=== PATIENT | female | born 1950 | race Caucasian/White ===

== ENCOUNTER 2017-03-10 16:27 | Emergency (ER) | payer OTHER ==
[2017-03-10 22:13] LABS: ADD MAN DIFF? NO
[2017-03-10 22:17] LABS: WHITE BLOOD COUNT 4.6 10^3/ul (4.8-10.8)
[2017-03-10 22:17] LABS: ABNORMAL IP MESSAGE 1; BASOPHILS % 0.6 % (0.0-2.0); EOSINOPHILS % 0.2 % (0.0-7.0); HEMATOCRIT 32.8 % (37.0-47.0); HEMOGLOBIN 11.3 g/dl (12.0-16.0); LYMPHOCYTES # 0.5 10^3/ul (0.8-2.9); LYMPHOCYTES % 11.6 % (15.0-51.0); MEAN CORPUSCULAR HEMOGLOBIN 29.4 pg (29.0-33.0); MEAN CORPUSCULAR HGB CONC 34.5 g/dl (32.0-37.0); MEAN CORPUSCULAR VOLUME 85.4 fl (82.0-101.0); MONOCYTE # 0.7 10^3/ul (0.3-0.9); MONOCYTES % 15.3 % (0.0-11.0); NEUTROPHIL # 3.3 10^3/ul (1.6-7.5); NEUTROPHILS % 71.9 % (39.0-77.0); PLATELET COUNT 224 10^3/UL (140-415); RED BLOOD COUNT 3.84 10^6/ul (4.20-5.40); RED CELL DISTRIBUTION WIDTH 13.6 % (11.5-14.5)
[2017-03-10] MEDS: ACETAMINOPHEN 325 MG TAB PO (22:18)
[2017-03-10] MEDS: METOCLOPRAMIDE 10 MG INJ IV (22:18)
[2017-03-10] MEDS: CEFEPIME 2GM/50 ML (PMX) 50 ML IVPB (22:18)
[2017-03-10] MEDS: SODIUM CHLORIDE 0.9% 1L BAG IV* (22:19)
[2017-03-10] MEDS: KETOROLAC 15 MG INJ IV (22:19)
[2017-03-10 22:24] LABS: POSITIVE DIFF @See below
[2017-03-10 22:36] LABS: ALANINE AMINOTRANSFERASE 43 IU/L (13-69); ALBUMIN 4.6 g/dl (3.3-4.9); ALBUMIN/GLOBULIN RATIO 1.24; ALKALINE PHOSPHATASE 74 IU/L (42-121); ANION GAP 21 (8-16); ASPARTATE AMINO TRANSFERASE 41 IU/L (15-46); BLOOD UREA NITROGEN 12 mg/dl (7-20); CALCIUM 8.9 mg/dl (8.4-10.2); CARBON DIOXIDE 26 mmol/L (21-31); CHLORIDE 88 mmol/L (97-110); CREATININE 0.61 mg/dl (0.44-1.00); GLUCOSE 100 mg/dl (70-220); POTASSIUM 3.7 mmol/L (3.5-5.1); SODIUM 131 mmol/L (135-144); TOTAL PROTEIN 8.3 g/dl (6.1-8.1)
[2017-03-10 22:41] LABS: INR 0.93; PROTIME 12.5 Sec (11.9-14.9)
[2017-03-10 22:42] LABS: PARTIAL THROMBOPLASTIN TIME 30.6 Sec (25.0-35.0)
[2017-03-10 22:45] LABS: LACTIC ACID 1.4 mmol/L (0.5-2.0)
[2017-03-10 22:47] LABS: TROPONIN-I < 0.012 ng/ml (0.00-0.12)
[2017-03-11 00:12] LABS: LACTIC ACID 0.6 mmol/L (0.5-2.0)
[2017-03-11 01:25] LABS: ADD UMIC YES; UR ASCORBIC ACID NEGATIVE (NEGATIVE); UR BILIRUBIN (Dip) NEGATIVE (NEGATIVE); UR BLOOD (Dip) 1+ mg/dL (NEGATIVE); UR CLARITY CLEAR (CLEAR); UR COLOR COLORLESS (YELLOW); UR GLUCOSE (Dip) NEGATIVE (NEGATIVE); UR KETONES (Dip) TRACE mg/dL (NEGATIVE); UR LEUKOCYTE ESTERASE (Dip) NEGATIVE Leu/ul (NEGATIVE); UR NITRITE (Dip) NEGATIVE (NEGATIVE); UR RBC 5 /HPF (0-5); UR SPECIFIC GRAVITY (Dip) 1.006 (1.003-1.030); UR TOTAL PROTEIN (Dip) NEGATIVE (NEGATIVE); UR UROBILINOGEN (Dip) NEGATIVE (NEGATIVE); UR WBC 0 /HPF (0-5)
== END 2017-03-11 02:27 | disposition home or self-care (01) ==
LOC: E/R 03-11 02:27
DX: J11.1 Influenza due to unidentified influenza virus with other respiratory manifestations (principal); I10 Essential (primary) hypertension; R07.9 Chest pain, unspecified; Z79.82 Long term (current) use of aspirin
CPT/HCPCS: 36415; 71045; 80053; 81001; 83605; 84484; 85025; 85610; 85730; 87040; 87086; 87400; 93005; 96374; 96375; 99285-25

== ENCOUNTER 2018-05-30 16:28 | Inpatient (IN) | payer OTHER ==
[2018-05-30 17:59] LABS: ADD MAN DIFF? NO
[2018-05-30 18:05] LABS: WHITE BLOOD COUNT 5.3 10^3/ul (4.8-10.8)
[2018-05-30 18:05] LABS: BASOPHILS % 0.4 % (0.0-2.0); EOSINOPHILS % 0.4 % (0.0-7.0); HEMATOCRIT 36.4 % (37.0-47.0); HEMOGLOBIN 12.3 g/dl (12.0-16.0); LYMPHOCYTES # 1.3 10^3/ul (0.8-2.9); MEAN CORPUSCULAR HGB CONC 33.8 g/dl (32.0-37.0); MEAN CORPUSCULAR VOLUME 85.8 fl (82.0-101.0); MEAN PLATELET VOLUME 10.9 fl (7.4-10.4); MONOCYTE # 0.4 10^3/ul (0.3-0.9); MONOCYTES % 8.1 % (0.0-11.0); NEUTROPHIL # 3.6 10^3/ul (1.6-7.5); NEUTROPHILS % 66.9 % (39.0-77.0); PLATELET COUNT 207 10^3/UL (140-415); RED BLOOD COUNT 4.24 10^6/ul (4.20-5.40); RED CELL DISTRIBUTION WIDTH 13.7 % (11.5-14.5)
[2018-05-30] MEDS: ASPIRIN 81 MG TAB PO (18:06)
[2018-05-30] MEDS: NITROGLYCERIN 2% 1 GM OINT PKT TD (18:07)
[2018-05-30] MEDS: NITROGLYCERIN (SL) 0.4 MG TAB SL (18:07)
[2018-05-30 18:22] LABS: ANION GAP 16 (5-13); BLOOD UREA NITROGEN 14 mg/dl (7-20); CALCIUM 9.4 mg/dl (8.4-10.2); CARBON DIOXIDE 25 mmol/L (21-31); CHLORIDE 93 mmol/L (97-110); CREATININE 0.51 mg/dl (0.44-1.00); Estimated GFR > 60 mL/min (>60); GLUCOSE 108 mg/dl (70-220); POTASSIUM 4.2 mmol/L (3.5-5.1); SODIUM 134 mmol/L (135-144)
[2018-05-30 18:34] LABS: TROPONIN-I < 0.012 ng/ml (0.000-0.120)
[2018-05-30] MEDS ORDERED: ONDANSETRON 4 MG INJ IV (19:30)
[2018-05-30] MEDS ORDERED: ACETAMINOPHEN 325 MG TAB PO (19:30)
[2018-05-30] MEDS ORDERED: ZOLPIDEM 5 MG TAB PO (23:30)
[2018-05-30] MEDS ORDERED: NITROGLYCERIN (SL) 0.4 MG TAB SL (23:30)
[2018-05-30 23:56] LABS: CREATINE KINASE 82 IU/L (23-200)
[2018-05-31 00:09] LABS: CK INDEX 0.4; CK-MB 0.32 ng/ml (0.0-2.4); TROPONIN-I < 0.012 ng/ml (0.000-0.120)
[2018-05-31] MEDS: HYDROCODONE/APAP (5/325) TAB PO ×2 (05:11→10:30)
[2018-05-31] MEDS: PANTOPRAZOLE (EC) 40 MG TAB PO (05:11)
[2018-05-31] MEDS: ONDANSETRON 4 MG TAB PO (05:11)
[2018-05-31 06:49] LABS: CREATINE KINASE 74 IU/L (23-200)
[2018-05-31 06:57] LABS: HDL CHOLESTEROL 55 mg/dl (35-98); LDL CHOLESTEROL,CALCULATED 45 mg/dl; TRIGLYCERIDES 50 mg/dl (0-149)
[2018-05-31 06:57] LABS: CHOLESTEROL 110 mg/dl (100-200)
[2018-05-31 07:18] LABS: CK INDEX 0.3; CK-MB 0.23 ng/ml (0.0-2.4); TROPONIN-I < 0.012 ng/ml (0.000-0.120)
[2018-05-31 07:20] LABS: TROPONIN-I < 0.012 ng/ml (0.000-0.120)
[2018-05-31] MEDS: ASPIRIN 325 MG TAB PO (08:07)
[2018-05-31] MEDS: METOPROLOL 25 MG TAB PO ×2 (08:07→20:35)
[2018-05-31] MEDS: ENOXAPARIN 40 MG/0.4 ML SYG SC (08:08)
[2018-05-31 17:24] LABS: ALANINE AMINOTRANSFERASE 16 IU/L (13-69); ALBUMIN 4.1 g/dl (3.3-4.9); ALBUMIN/GLOBULIN RATIO 1.28; ALKALINE PHOSPHATASE 60 IU/L (42-121); AMYLASE 122 U/L (11-123); ANION GAP 11 (5-13); ASPARTATE AMINO TRANSFERASE 22 IU/L (15-46); BILIRUBIN,INDIRECT 0.3 mg/dl (0-1.1); BILIRUBIN,TOTAL 0.3 mg/dl (0.2-1.3); BLOOD UREA NITROGEN 14 mg/dl (7-20); CALCIUM 8.9 mg/dl (8.4-10.2); CARBON DIOXIDE 27 mmol/L (21-31); CHLORIDE 95 mmol/L (97-110); CREATININE 0.85 mg/dl (0.44-1.00); Estimated GFR > 60 mL/min (>60); GLUCOSE 108 mg/dl (70-220); LIPASE 203 U/L (23-300); POTASSIUM 4.1 mmol/L (3.5-5.1); SODIUM 133 mmol/L (135-144); TOTAL PROTEIN 7.3 g/dl (6.1-8.1)
[2018-05-31] MEDS: ATORVASTATIN 20 MG TAB PO (20:34)
[2018-06-01] MEDS: PANTOPRAZOLE (EC) 40 MG TAB PO (06:06)
[2018-06-01 06:11] LABS: ADD MAN DIFF? NO
[2018-06-01 06:20] LABS: BASOPHILS % 0.5 % (0.0-2.0); EOSINOPHILS # 0.1 10^3/ul (0.0-0.5); EOSINOPHILS % 2.3 % (0.0-7.0); HEMATOCRIT 34.5 % (37.0-47.0); HEMOGLOBIN 11.6 g/dl (12.0-16.0); LYMPHOCYTES # 1.7 10^3/ul (0.8-2.9); LYMPHOCYTES % 42.2 % (15.0-51.0); MEAN CORPUSCULAR HEMOGLOBIN 29.6 pg (29.0-33.0); MEAN CORPUSCULAR HGB CONC 33.6 g/dl (32.0-37.0); MEAN PLATELET VOLUME 10.7 fl (7.4-10.4); MONOCYTE # 0.4 10^3/ul (0.3-0.9); MONOCYTES % 10.6 % (0.0-11.0); NEUTROPHIL # 1.8 10^3/ul (1.6-7.5); NEUTROPHILS % 44.4 % (39.0-77.0); PLATELET COUNT 200 10^3/UL (140-415); RED BLOOD COUNT 3.92 10^6/ul (4.20-5.40); RED CELL DISTRIBUTION WIDTH 13.9 % (11.5-14.5)
[2018-06-01 06:49] LABS: TROPONIN-I < 0.012 ng/ml (0.000-0.120)
[2018-06-01 06:50] LABS: ANION GAP 10 (5-13); BLOOD UREA NITROGEN 19 mg/dl (7-20); CARBON DIOXIDE 27 mmol/L (21-31); CHLORIDE 98 mmol/L (97-110); CHOL/HDL RATIO 1.8 RATIO; CHOLESTEROL 103 mg/dl (100-200); Estimated GFR > 60 mL/min (>60); GLUCOSE 95 mg/dl (70-220); HDL CHOLESTEROL 55 mg/dl (35-98); LDL CHOLESTEROL,CALCULATED 37 mg/dl; POTASSIUM 4.1 mmol/L (3.5-5.1); SODIUM 135 mmol/L (135-144); TRIGLYCERIDES 53 mg/dl (0-149)
[2018-06-01] MEDS: METOPROLOL 25 MG TAB PO ×2 (09:00→22:14)
[2018-06-01] MEDS: ASPIRIN 325 MG TAB PO (09:00)
[2018-06-01] MEDS: ENOXAPARIN 40 MG/0.4 ML SYG SC (10:48)
[2018-06-01] MEDS: REGADENOSON 0.4 MG/5 ML SYG (11:45)
[2018-06-01] MEDS: ATORVASTATIN 20 MG TAB PO (21:50)
[2018-06-01] MEDS: OXYMETAZOLINE 0.05% 15 ML NAS SPRAY NASAL (22:14)
[2018-06-01] MEDS: LORATADINE 10 MG TAB PO (22:14)
[2018-06-02] MEDS: PANTOPRAZOLE (EC) 40 MG TAB PO (06:04)
[2018-06-02 06:54] LABS: ADD MAN DIFF? NO
[2018-06-02 06:57] LABS: WHITE BLOOD COUNT 3.9 10^3/ul (4.8-10.8)
[2018-06-02 06:57] LABS: BASOPHILS % 0.5 % (0.0-2.0); EOSINOPHILS # 0.1 10^3/ul (0.0-0.5); EOSINOPHILS % 1.8 % (0.0-7.0); HEMATOCRIT 34.5 % (37.0-47.0); HEMOGLOBIN 11.6 g/dl (12.0-16.0); LYMPHOCYTES # 1.6 10^3/ul (0.8-2.9); LYMPHOCYTES % 41.9 % (15.0-51.0); MEAN CORPUSCULAR HEMOGLOBIN 29.4 pg (29.0-33.0); MEAN CORPUSCULAR HGB CONC 33.6 g/dl (32.0-37.0); MEAN CORPUSCULAR VOLUME 87.3 fl (82.0-101.0); MEAN PLATELET VOLUME 10.9 fl (7.4-10.4); MONOCYTE # 0.5 10^3/ul (0.3-0.9); MONOCYTES % 12.3 % (0.0-11.0); NEUTROPHIL # 1.7 10^3/ul (1.6-7.5); NEUTROPHILS % 43.2 % (39.0-77.0); PLATELET COUNT 198 10^3/UL (140-415); RED BLOOD COUNT 3.95 10^6/ul (4.20-5.40)
[2018-06-02 07:24] LABS: ANION GAP 9 (5-13); BLOOD UREA NITROGEN 17 mg/dl (7-20); CARBON DIOXIDE 28 mmol/L (21-31); CHLORIDE 99 mmol/L (97-110); CREATININE 0.63 mg/dl (0.44-1.00); Estimated GFR > 60 mL/min (>60); GLUCOSE 91 mg/dl (70-220); POTASSIUM 3.8 mmol/L (3.5-5.1); SODIUM 136 mmol/L (135-144)
[2018-06-02] MEDS: METOPROLOL 25 MG TAB PO ×2 (09:00→21:02)
[2018-06-02] MEDS: ASPIRIN 325 MG TAB PO (09:08)
[2018-06-02] MEDS: LORATADINE 10 MG TAB PO (09:09)
[2018-06-02] MEDS: OXYMETAZOLINE 0.05% 15 ML NAS SPRAY NASAL ×2 (09:10→21:03)
[2018-06-02] MEDS: ENOXAPARIN 40 MG/0.4 ML SYG SC (09:14)
[2018-06-02] MEDS ORDERED: LORAZEPAM 0.5 MG TAB PO (12:30)
[2018-06-02] MEDS: LORAZEPAM 1 MG TAB PO (13:52)
[2018-06-02] MEDS: ATORVASTATIN 20 MG TAB PO (21:01)
[2018-06-03] MEDS: PANTOPRAZOLE (EC) 40 MG TAB PO (05:52)
[2018-06-03 06:44] LABS: ADD MAN DIFF? NO
[2018-06-03 06:48] LABS: BASOPHILS % 0.5 % (0.0-2.0); EOSINOPHILS # 0.1 10^3/ul (0.0-0.5); EOSINOPHILS % 2.5 % (0.0-7.0); HEMATOCRIT 36.3 % (37.0-47.0); HEMOGLOBIN 12.1 g/dl (12.0-16.0); LYMPHOCYTES # 1.7 10^3/ul (0.8-2.9); LYMPHOCYTES % 42.1 % (15.0-51.0); MEAN CORPUSCULAR HEMOGLOBIN 29.2 pg (29.0-33.0); MEAN CORPUSCULAR HGB CONC 33.3 g/dl (32.0-37.0); MEAN CORPUSCULAR VOLUME 87.7 fl (82.0-101.0); MONOCYTE # 0.5 10^3/ul (0.3-0.9); MONOCYTES % 11.7 % (0.0-11.0); NEUTROPHIL # 1.7 10^3/ul (1.6-7.5); NEUTROPHILS % 42.9 % (39.0-77.0); PLATELET COUNT 191 10^3/UL (140-415); RED BLOOD COUNT 4.14 10^6/ul (4.20-5.40)
[2018-06-03 06:48] LABS: WHITE BLOOD COUNT 3.9 10^3/ul (4.8-10.8)
[2018-06-03 07:12] LABS: ANION GAP 9 (5-13); BLOOD UREA NITROGEN 16 mg/dl (7-20); CALCIUM 9.1 mg/dl (8.4-10.2); CARBON DIOXIDE 28 mmol/L (21-31); CHLORIDE 100 mmol/L (97-110); CREATININE 0.67 mg/dl (0.44-1.00); Estimated GFR > 60 mL/min (>60); GLUCOSE 94 mg/dl (70-220); SODIUM 137 mmol/L (135-144)
[2018-06-03] MEDS: LORATADINE 10 MG TAB PO (09:10)
[2018-06-03] MEDS: METOPROLOL 25 MG TAB PO ×2 (09:10→21:16)
[2018-06-03] MEDS: OXYMETAZOLINE 0.05% 15 ML NAS SPRAY NASAL ×2 (09:10→21:15)
[2018-06-03] MEDS: ASPIRIN 325 MG TAB PO (09:10)
[2018-06-03] MEDS: ENOXAPARIN 40 MG/0.4 ML SYG SC (09:15)
[2018-06-03] MEDS: ATORVASTATIN 20 MG TAB PO (21:15)
[2018-06-03] MEDS: ISOSORBIDE DINITRATE 10 MG TAB PO (21:15)
[2018-06-04] MEDS: PANTOPRAZOLE (EC) 40 MG TAB PO (07:01)
[2018-06-04] MEDS: ISOSORBIDE DINITRATE 10 MG TAB PO ×3 (09:13→22:04)
[2018-06-04] MEDS: METOPROLOL 25 MG TAB PO ×2 (09:14→21:00)
[2018-06-04] MEDS: ASPIRIN 325 MG TAB PO (09:14)
[2018-06-04] MEDS: LORATADINE 10 MG TAB PO (09:14)
[2018-06-04] MEDS: OXYMETAZOLINE 0.05% 15 ML NAS SPRAY NASAL ×2 (09:15→22:07)
[2018-06-04] MEDS: ENOXAPARIN 40 MG/0.4 ML SYG SC (09:19)
[2018-06-04] MEDS: HYDROCODONE/APAP (5/325) TAB PO ×3 (10:27→23:37)
[2018-06-04] MEDS: ONDANSETRON 4 MG TAB PO (13:07)
[2018-06-04] MEDS: ATORVASTATIN 20 MG TAB PO (22:04)
[2018-06-05] MEDS: PANTOPRAZOLE 40 MG INJ IV (06:32)
[2018-06-05 06:53] LABS: ADD MAN DIFF? NO
[2018-06-05 06:56] LABS: WHITE BLOOD COUNT 4.1 10^3/ul (4.8-10.8)
[2018-06-05 06:56] LABS: BASOPHILS % 0.5 % (0.0-2.0); EOSINOPHILS # 0.1 10^3/ul (0.0-0.5); EOSINOPHILS % 2.2 % (0.0-7.0); LYMPHOCYTES # 1.8 10^3/ul (0.8-2.9); LYMPHOCYTES % 43.6 % (15.0-51.0); MEAN CORPUSCULAR HEMOGLOBIN 29.4 pg (29.0-33.0); MEAN CORPUSCULAR HGB CONC 34.4 g/dl (32.0-37.0); MEAN CORPUSCULAR VOLUME 85.6 fl (82.0-101.0); MONOCYTE # 0.5 10^3/ul (0.3-0.9); MONOCYTES % 11.3 % (0.0-11.0); NEUTROPHIL # 1.7 10^3/ul (1.6-7.5); NEUTROPHILS % 42.2 % (39.0-77.0); PLATELET COUNT 187 10^3/UL (140-415); RED BLOOD COUNT 3.74 10^6/ul (4.20-5.40); RED CELL DISTRIBUTION WIDTH 13.5 % (11.5-14.5)
[2018-06-05 07:24] LABS: ANION GAP 8 (5-13); BLOOD UREA NITROGEN 15 mg/dl (7-20); CARBON DIOXIDE 29 mmol/L (21-31); CHLORIDE 94 mmol/L (97-110); CREATININE 0.65 mg/dl (0.44-1.00); Estimated GFR > 60 mL/min (>60); GLUCOSE 93 mg/dl (70-220); POTASSIUM 4.1 mmol/L (3.5-5.1); SODIUM 131 mmol/L (135-144)
[2018-06-05] MEDS: ENOXAPARIN 40 MG/0.4 ML SYG SC ×2 (09:00→14:50)
[2018-06-05] MEDS: OXYMETAZOLINE 0.05% 15 ML NAS SPRAY NASAL ×2 (09:02→21:39)
[2018-06-05] MEDS ORDERED: ONDANSETRON 4 MG INJ IV (10:30)
[2018-06-05] MEDS ORDERED: HYDROmorphONE 1 MG/5 ML IV SYRINGE IV (10:30)
[2018-06-05] MEDS ORDERED: PROPOFOL 20 ML (11:01)
[2018-06-05] MEDS ORDERED: LIDOCAINE 2% (SDV) 5 ML INJ (11:01)
[2018-06-05] MEDS: ASPIRIN 325 MG TAB PO (12:03)
[2018-06-05] MEDS: ISOSORBIDE DINITRATE 10 MG TAB PO ×3 (12:03→21:40)
[2018-06-05] MEDS: METOPROLOL 25 MG TAB PO ×2 (12:04→21:40)
[2018-06-05] MEDS: LORATADINE 10 MG TAB PO (12:15)
[2018-06-05] MEDS: ACETAMINOPHEN 325 MG TAB PO ×2 (14:46→21:46)
[2018-06-05] MEDS: ATORVASTATIN 20 MG TAB PO (21:39)
[2018-06-06] MEDS: ACETAMINOPHEN 325 MG TAB PO (03:33)
[2018-06-06] MEDS: PANTOPRAZOLE 40 MG INJ IV (06:26)
[2018-06-06] MEDS: OXYMETAZOLINE 0.05% 15 ML NAS SPRAY NASAL ×2 (08:29→21:00)
[2018-06-06] MEDS: LORATADINE 10 MG TAB PO (08:29)
[2018-06-06] MEDS: ISOSORBIDE DINITRATE 10 MG TAB PO ×3 (08:29→21:23)
[2018-06-06] MEDS: ASPIRIN 325 MG TAB PO (08:29)
[2018-06-06] MEDS: METOPROLOL 25 MG TAB PO ×2 (08:29→21:22)
[2018-06-06] MEDS: ENOXAPARIN 40 MG/0.4 ML SYG SC (08:41)
[2018-06-06] MEDS: LORAZEPAM 2 MG INJ IV (12:37)
[2018-06-06] MEDS: IBUPROFEN 400 MG TAB PO (15:15)
[2018-06-06] MEDS: ATORVASTATIN 20 MG TAB PO (21:21)
[2018-06-07 05:35] LABS: ADD MAN DIFF? NO
[2018-06-07 05:38] LABS: BASOPHILS % 0.7 % (0.0-2.0); EOSINOPHILS # 0.1 10^3/ul (0.0-0.5); HEMATOCRIT 32.8 % (37.0-47.0); HEMOGLOBIN 11.3 g/dl (12.0-16.0); LYMPHOCYTES # 2.1 10^3/ul (0.8-2.9); LYMPHOCYTES % 35.5 % (15.0-51.0); MEAN CORPUSCULAR HEMOGLOBIN 29.7 pg (29.0-33.0); MEAN CORPUSCULAR HGB CONC 34.5 g/dl (32.0-37.0); MEAN CORPUSCULAR VOLUME 86.1 fl (82.0-101.0); MONOCYTE # 0.6 10^3/ul (0.3-0.9); MONOCYTES % 9.8 % (0.0-11.0); NEUTROPHIL # 3.1 10^3/ul (1.6-7.5); NEUTROPHILS % 51.8 % (39.0-77.0); PLATELET COUNT 189 10^3/UL (140-415); RED BLOOD COUNT 3.81 10^6/ul (4.20-5.40); RED CELL DISTRIBUTION WIDTH 13.6 % (11.5-14.5)
[2018-06-07] MEDS: PANTOPRAZOLE 40 MG INJ IV (05:47)
[2018-06-07 06:25] LABS: ANION GAP 8 (5-13); BLOOD UREA NITROGEN 19 mg/dl (7-20); CALCIUM 9.4 mg/dl (8.4-10.2); CARBON DIOXIDE 29 mmol/L (21-31); CHLORIDE 95 mmol/L (97-110); CREATININE 0.77 mg/dl (0.44-1.00); Estimated GFR > 60 mL/min (>60); GLUCOSE 95 mg/dl (70-220); POTASSIUM 4.3 mmol/L (3.5-5.1); SODIUM 132 mmol/L (135-144)
[2018-06-07] MEDS: ASPIRIN 325 MG TAB PO (08:44)
[2018-06-07] MEDS: ISOSORBIDE DINITRATE 10 MG TAB PO ×3 (08:45→21:13)
[2018-06-07] MEDS: METOPROLOL 25 MG TAB PO ×2 (08:48→21:14)
[2018-06-07] MEDS: ENOXAPARIN 40 MG/0.4 ML SYG SC (08:50)
[2018-06-07] MEDS: OXYMETAZOLINE 0.05% 15 ML NAS SPRAY NASAL ×2 (09:00→21:00)
[2018-06-07] MEDS: LORATADINE 10 MG TAB PO (12:50)
[2018-06-07] MEDS: ACETAMINOPHEN 325 MG TAB PO ×2 (15:30→21:17)
[2018-06-07] MEDS: ATORVASTATIN 20 MG TAB PO (21:10)
[2018-06-08] MEDS: PANTOPRAZOLE 40 MG INJ IV (05:19)
[2018-06-08] MEDS: ACETAMINOPHEN 325 MG TAB PO ×2 (05:33→12:02)
[2018-06-08] MEDS: LORATADINE 10 MG TAB PO (08:25)
[2018-06-08] MEDS: ASPIRIN 325 MG TAB PO (08:25)
[2018-06-08] MEDS: METOPROLOL 25 MG TAB PO ×2 (08:25→20:38)
[2018-06-08] MEDS: ISOSORBIDE DINITRATE 10 MG TAB PO ×3 (08:25→20:38)
[2018-06-08] MEDS: ENOXAPARIN 40 MG/0.4 ML SYG SC (08:28)
[2018-06-08] MEDS: OXYMETAZOLINE 0.05% 15 ML NAS SPRAY NASAL ×2 (09:36→20:38)
[2018-06-08] MEDS: DICLOFENAC SODIUM 1% GEL 100 GM TUBE TP ×3 (15:02→20:38)
[2018-06-08] MEDS: ATORVASTATIN 20 MG TAB PO (20:37)
[2018-06-09] MEDS: PANTOPRAZOLE 40 MG INJ IV (06:33)
[2018-06-09] MEDS: METOPROLOL 25 MG TAB PO (08:06)
[2018-06-09] MEDS: LORATADINE 10 MG TAB PO (08:06)
[2018-06-09] MEDS: ASPIRIN 325 MG TAB PO (08:06)
[2018-06-09] MEDS: ISOSORBIDE DINITRATE 10 MG TAB PO ×2 (08:06→13:23)
[2018-06-09] MEDS: ENOXAPARIN 40 MG/0.4 ML SYG SC (08:08)
[2018-06-09] MEDS: OXYMETAZOLINE 0.05% 15 ML NAS SPRAY NASAL (08:09)
[2018-06-09] MEDS: DICLOFENAC SODIUM 1% GEL 100 GM TUBE TP ×2 (08:09→14:20)
== END 2018-06-09 15:35 | disposition home or self-care (01) | DRG 445 ==
LOC: TEL 05-31 19:03 → 2NE 06-06 17:00 → E/R 16:28 → MS3 19:10
PROC: 0DB68ZX Excision of Stomach, Via Natural or Artificial Opening Endoscopic, Diagnostic (ICD-10-PCS; principal; 2018-06-05 10:26)
PROC: 0DB78ZX Excision of Stomach, Pylorus, Via Natural or Artificial Opening Endoscopic, Diagnostic (ICD-10-PCS; 2018-06-05 10:26)
DX: K80.20 Calculus of gallbladder without cholecystitis without obstruction (principal); E87.1 Hypo-osmolality and hyponatremia; N13.30 Unspecified hydronephrosis; I42.9 Cardiomyopathy, unspecified; I25.10 Atherosclerotic heart disease of native coronary artery without angina pectoris; R51 Headache; I10 Essential (primary) hypertension; E78.5 Hyperlipidemia, unspecified; K29.30 Chronic superficial gastritis without bleeding; M47.812 Spondylosis without myelopathy or radiculopathy, cervical region; R07.9 Chest pain, unspecified; R10.11 Right upper quadrant pain; Z79.82 Long term (current) use of aspirin
CPT/HCPCS: 36415; 70450; 71045; 72125; 76705; 78226; 78452; 80048; 80053; 80061; 82150; 82550; 82553; 83690; 83735; 84443; 84484; 85025; 88305; 88312; 93005; 93017; 93306; 99285-25; G0378

== ENCOUNTER 2018-06-23 01:35 | Emergency (ER) | payer OTHER ==
[2018-06-23 03:43] LABS: ADD MAN DIFF? NO
[2018-06-23 04:01] LABS: ANION GAP 11 (5-13); BLOOD UREA NITROGEN 14 mg/dl (7-20); CARBON DIOXIDE 25 mmol/L (21-31); CHLORIDE 94 mmol/L (97-110); Estimated GFR > 60 mL/min (>60); GLUCOSE 122 mg/dl (70-220); POTASSIUM 4.1 mmol/L (3.5-5.1); SODIUM 130 mmol/L (135-144)
[2018-06-23 04:13] LABS: TROPONIN-I < 0.012 ng/ml (0.000-0.120)
[2018-06-23 04:28] LABS: WHITE BLOOD COUNT 7.2 10^3/ul (4.8-10.8)
[2018-06-23 04:28] LABS: BASOPHILS % 0.4 % (0.0-2.0); EOSINOPHILS % 0.3 % (0.0-7.0); HEMATOCRIT 34.2 % (37.0-47.0); HEMOGLOBIN 12.1 g/dl (12.0-16.0); LYMPHOCYTES # 0.9 10^3/ul (0.8-2.9); LYMPHOCYTES % 12.2 % (15.0-51.0); MEAN CORPUSCULAR HEMOGLOBIN 29.9 pg (29.0-33.0); MEAN CORPUSCULAR HGB CONC 35.4 g/dl (32.0-37.0); MEAN CORPUSCULAR VOLUME 84.4 fl (82.0-101.0); MEAN PLATELET VOLUME 11.6 fl (7.4-10.4); MONOCYTE # 0.5 10^3/ul (0.3-0.9); MONOCYTES % 6.3 % (0.0-11.0); NEUTROPHIL # 5.8 10^3/ul (1.6-7.5); NEUTROPHILS % 80.5 % (39.0-77.0); PLATELET COUNT 204 10^3/UL (140-415); RED BLOOD COUNT 4.05 10^6/ul (4.20-5.40); RED CELL DISTRIBUTION WIDTH 12.7 % (11.5-14.5)
== END 2018-06-23 04:45 | disposition home or self-care (01) ==
LOC: E/R 04:45
DX: M79.602 Pain in left arm (principal); I10 Essential (primary) hypertension; Z79.82 Long term (current) use of aspirin
CPT/HCPCS: 36415; 71045; 80048; 84484; 85025; 93005; 99285-25

== ENCOUNTER 2018-07-14 23:39 | Emergency (ER) | payer OTHER ==
[2018-07-15 01:20] LABS: ADD MAN DIFF? NO
[2018-07-15 01:22] LABS: BASOPHILS % 0.4 % (0.0-2.0); EOSINOPHILS % 0.3 % (0.0-7.0); HEMATOCRIT 35.4 % (37.0-47.0); HEMOGLOBIN 12.4 g/dl (12.0-16.0); LYMPHOCYTES # 1.3 10^3/ul (0.8-2.9); LYMPHOCYTES % 18.3 % (15.0-51.0); MEAN CORPUSCULAR HEMOGLOBIN 29.6 pg (29.0-33.0); MEAN CORPUSCULAR VOLUME 84.5 fl (82.0-101.0); MEAN PLATELET VOLUME 9.8 fl (7.4-10.4); MONOCYTE # 0.6 10^3/ul (0.3-0.9); MONOCYTES % 8.3 % (0.0-11.0); NEUTROPHILS % 72.6 % (39.0-77.0); PLATELET COUNT 256 10^3/UL (140-415); RED BLOOD COUNT 4.19 10^6/ul (4.20-5.40); RED CELL DISTRIBUTION WIDTH 12.6 % (11.5-14.5)
[2018-07-15 01:22] LABS: WHITE BLOOD COUNT 6.9 10^3/ul (4.8-10.8)
[2018-07-15 01:42] LABS: ALANINE AMINOTRANSFERASE 24 IU/L (13-69); ALBUMIN 4.8 g/dl (3.3-4.9); ALBUMIN/GLOBULIN RATIO 1.26; ALKALINE PHOSPHATASE 81 IU/L (42-121); ANION GAP 14 (5-13); ASPARTATE AMINO TRANSFERASE 28 IU/L (15-46); BLOOD UREA NITROGEN 9 mg/dl (7-20); CALCIUM 9.4 mg/dl (8.4-10.2); CARBON DIOXIDE 25 mmol/L (21-31); CHLORIDE 89 mmol/L (97-110); CREATININE 0.54 mg/dl (0.44-1.00); Estimated GFR > 60 mL/min (>60); GLUCOSE 127 mg/dl (70-220); POTASSIUM 4.3 mmol/L (3.5-5.1); SODIUM 128 mmol/L (135-144); TOTAL PROTEIN 8.6 g/dl (6.1-8.1)
[2018-07-15 01:51] LABS: B-TYPE NATRIURETIC PEPTIDE 124 PG/ML (0-125)
[2018-07-15 01:55] LABS: TROPONIN-I < 0.012 ng/ml (0.000-0.120)
[2018-07-15] MEDS: ACETAMINOPHEN 500 MG TAB PO (04:12)
[2018-07-15] MEDS ORDERED: ACETAMINOPHEN 500 MG TAB (04:15)
== END 2018-07-15 05:32 | disposition home or self-care (01) ==
LOC: E/R 23:39
DX: I10 Essential (primary) hypertension (principal); Z79.82 Long term (current) use of aspirin
CPT/HCPCS: 36415; 71045; 80053; 83880; 84484; 85025; 93005; 99285-25

== ENCOUNTER 2018-09-20 08:08 | Day surgery (SDC) | payer OTHER ==
[2018-09-20] MEDS ORDERED: FENTAnyl 50 MCG/ML VIAL (10:10)
[2018-09-20] MEDS ORDERED: MIDAZOLAM 1 MG/ML 2 ML INJ ×2 (10:10)
== END 2018-09-20 14:12 | disposition home or self-care (01) ==
LOC: GIL 08:08
DX: R19.7 Diarrhea, unspecified (principal)
CPT/HCPCS: 45378